=== PATIENT | female | born 1980 | race Caucasian/White ===

== ENCOUNTER 2025-04-02 13:31 | Emergency (ER) | payer MEDICAID ==
[~2025-04-02] VITALS: Ht 177.8 cm; Wt 85.6 kg
[2025-04-02 13:38] VITALS: BP 172/88; PULSE 98; RESP 18; TEMP 98.4; O2SAT 97
--- NOTE | 2025-04-02 14:05 | RADIOLOGY REPORT ---
Procedure: DI TIB/FIB 2 VWS 04/02/2025 01:47 PM TECHNIQUE: DI TIB/FIB 2 VWS Indication: LEG PAIN Comparison: None FINDINGS: Bones: Cast obscures fine bony detail. There is a fracture of the distal tibia and the distal fibula. Soft tissues: Obscured by the cast. No radiopaque foreign body. IMPRESSION: 1. Distal tibia and fibula fractures.
--- NOTE | 2025-04-02 15:48 | Physician Documentation ---
History of Present Illness ~ Chief Complaint: Leg Pain Stated Complaint: WOUND CARE Time Seen by MD: 14:35 OK to notify your PCP?: Yes Primary Medical Doctor: dr. mcneal in [place] Source: patient Mode of Arrival: POV Exam Limitations: no limitations HPI 44-year-old female who is here with right leg pain. Patient states that she had a ground level fall a few days ago and had a splint placed at [facility] after she was diagnosed with a distal tibia and fibula fracture. She reports she ended up returning to [facility] a few days later because the splint was too tight and she states that her foot was numb and she was getting shooting pains in her calf. She had an ultrasound at [facility] last night to make sure she did not have a DVT because she does report she has factor five Leiden. She states ultrasound was negative and they put another splint on her but that this splint was really loose and she states she asked the pediatric orthodontist to redo it but that he was really rude and would not. she states that her ankle feels like it is drifting around inside the splint and she does not feel like it is stable. She feels like she is going to fall because of the looseness of the splint. She leaves tomorrow to go back home to [place]. She is planning on following up with an orthopedist in [place]. She also states that yesterday at [facility] when they removed her splint that they noted blisters around her ankle so she is aware of these and is aware that they are fracture blisters. Tetanus witin 5 years: Yes Past Medical History Past Medical History: *HEMATOLOGY* (factor 5 leiden) Past Surgical History: noncontributory Drug Use: none Lives with: Spouse Lives In: Home Review of Systems All Other Systems at this time: Reviewed and Negative Physical Exam Vital Signs: Temperature: 98.4, Source: Temporal, Heart Rate: 98, Respiratory Rate: 18, BP: 172/88, Pulse Oximetry: 97, Weight: 85.600 Oxygen Flow Rate: 0 Physical Exam General Appearance: Alert, WD/WN. NAD. HEENT: NCAT, PERRL, EOMI. Neck: Supple, trachea midline. Cardiovascular: RRR. No m/r/g. Lungs: CTAB. Breathing unlabored Extremities: RIGHT LOWER LEG IN SPLINT, SPLINT DOES NOT EXTEND TO BASE OF TOES BUT STOPS SHY OF THE TOES, SPLINT ALSO DOES APPEAR LOOSE I AM ABLE TO EASILY FIT MY FINGERS INTO THE TOP AND BOTTOM OF THE SPLINT. SPLINT REMOVED AND THERE ARE BLISTERS AROUND THE MEDIAL AND LATERAL MALLEOLOUS. NO ERYTHEMA OVER THE ANKLE. PEDAL PULSES 2+ BILATERALLY. Skin: Warm/dry, normal color Neurological: Alert and oriented x4, normal gait. Psychiatric: Affect congruent with mood. Procedures Procedures Removed splint on right lower leg and placed a Casco plaster splint patient reported almost immediate improvement in her discomfort of her lower leg Progress Results/Orders Results/Orders Orders - CHARLIE CARTAGENA Ortho Orders (04/02/25 14:50) Vital Signs 04/02/25 13:38 Temp 98.4 Pulse 98 Resp 18 B/P (MAP) 172/88 Pulse Ox 97 O2 Flow Rate 0 Medical Decision Making Ankle Diff Dx:Considerations: Include: Abrasion, Arthritis, Contusion, DJD, Fracture-metatarsal, Fracture-fibula, Fracture-tarsal, Fracture-tibia, Gout, Hematoma, Laceration, Malunion, Neurovascular injury, Nonunion, Open fracture, Osteomyelitis, Rheumatoid arthritis, Sprain, Septic, Ulcer Additional Comment No evidence for infection no evidence for compartment syndrome or any vascular complication pedal pulses were normal cap refill normal patient just had an ultrasound done yesterday which was negative for DVT Departure Time of Disposition: 15:48 Disposition: 01 HOME / SELF CARE / HOMELESS Impression: Primary Impression: Fracture of distal end of tibia Qualified Codes: S82.301A - Unspecified fracture of lower end of right tibia, initial encounter for closed fracture Additional Impression: Fracture of distal fibula Qualified Codes: S82.831A - Other fracture of upper and lower end of right fibula, initial encounter for closed fracture Condition: Stable Discharge Instructions: General Discharge Instructions Additional Instructions: f/u with ortho when you return to [facility] wear splint until seen by ortho Referrals: NO PRIMARY CARE PROVIDER (PCP) Education Educated: Patient Educated regarding: diagnosis, treatment, need for follow up Signature Scribe Signature: x Attestation: CHARLIE Santamaria Apr 02, 2025 15:48
== END 2025-04-02 16:46 | disposition home or self-care (01) ==
LOC: ER 13:32
DX: S82.831A Other fracture of upper and lower end of right fibula, initial encounter for closed fracture (principal); W18.39XA Other fall on same level, initial encounter; Y93.89 Activity, other specified; Y92.89 Other specified places as the place of occurrence of the external cause; Y99.8 Other external cause status
CPT/HCPCS: 29515; 73590; 99284; A6222; A6223; A6446; A6449